=== PATIENT | female | born 1980 | race Hispanic/Latino ===

== ENCOUNTER 2017-01-15 12:09 | Inpatient (IN) | payer OTHER ==
[2017-01-15 14:17] LABS: HEMOGLOBIN 13.4 g/dL (12.0-16.0); MEAN CELL VOLUME 88.1 fl (81.0-99.0); MEAN CORPUSCULAR HEMOGLOBIN 29.5 pg (27.0-31.0); MEAN CORPUSCULAR HGB CONC 33.5 g/dL (33.0-37.0); RBC 4.55 Mil/uL (3.80-5.20); RED CELL DISTRIBUTION WIDTH 13.6 % (11.5-14.5); WHITE BLOOD COUNT 9.6 K/uL (4.8-10.8)
[2017-01-15 14:27] LABS: SQUAMOUS EPITHIAL 14 /hpf (0-5); URINE BACTERIA RARE (<OCC); URINE BILIRUBIN NEGATIVE (NEGATIVE); URINE BLOOD SMALL (NEGATIVE); URINE CLARITY CLOUDY (Clear); URINE COLOR YELLOW (YELLOW); URINE GLUCOSE (UA) NEG (Normal); URINE LEUKOCYTE ESTERASE NEG Leu/uL (Negative); URINE NITRATE NEGATIVE (NEGATIVE); URINE PROTEIN NEGATIVE (NEGATIVE); URINE UROBILINOGEN 0.2-1.0 mg/dL (0.2-1.0)
[2017-01-15 14:34] LABS: ACETAMINOPHEN < 10.0 ug/ml (10.0-30.0); SALICYLATE < 1.0 mg/dL 1
[2017-01-15 14:35] LABS: BLOOD UREA NITROGEN 23 mg/dl (7-17); GFR AFRICAN-AMERICAN > 60; GFR NON-AFRICAN AMERICAN > 60
[2017-01-15 14:36] LABS: ALB/GLOB RATIO 1.4 (1.0-2.1); ALBUMIN 3.8 g/dL (3.5-5.0); AST/SGOT 21 U/L (14-36); CALCIUM 8.8 mg/dL (8.4-10.2)
[2017-01-15 14:37] LABS: ALT/SGPT 18 U/L (9-52)
[2017-01-15 15:13] LABS: BARBITURATES, UR NEGATIVE (NEGATIVE); BENZODIAZEPINES, UR NEGATIVE (NEGATIVE); OPIATES, UR NEGATIVE (NEGATIVE); PHENCYCLIDINE, UR NEGATIVE (NEGATIVE)
--- NOTE | 2017-01-15 17:37 | ED PDOC ---
HPI: Psych/Substance Abuse Time Seen by Provider: 01/15/17 12:45 Chief Complaint (Nursing): Psychiatric Evaluation Chief Complaint (Provider): Depression, SI History Per: Patient History/Exam Limitations: no limitations Onset/Duration Of Symptoms: Days Current Symptoms Are (Timing): Still Present Suicide/Self Injury Attempted (Context): Other Additional Complaint(s): Pt states she has been very depressed because her 16 year old daugher who currently lives in [place] with her father hetes her. PT states her friend was telling her things the daughter said about her which made he increasingly upset. Pt states 3 days ago she took a bunch of random medications but woke up in the morning. PT states she feels like she was going to attempt suicide again so she came to ER. Pt has history of depression and has been on medicaitons in the past but is not currently on any. Past Medical History Reviewed: Historical Data, Nursing Documentation, Vital Signs Vital Signs: Last Vital Signs Temp 98.1 F 01/15/17 12:30 Pulse 97 H 01/15/17 12:30 Resp 18 01/15/17 12:30 BP 154/100 H 01/15/17 12:30 Pulse Ox 100 01/15/17 12:30 - Medical History PMH: Arthritis, Depression - Surgical History Surgical History: No Surg Hx - Family History Family History: States: No Known Family Hx - Living Arrangements Living Arrangements: With Family - Social History Current smoker - smoking cessation education provided: No Alcohol: Occasional Drugs: Denies - Allergies Allergies/Adverse Reactions: Allergies Allergy/AdvReac Type Severity Reaction Status Date / Time No Known Allergies Allergy Verified 01/15/17 12:30 Review of Systems ROS Statement: Except As Marked, All Systems Reviewed And Found Negative Neurological: Negative for: Weakness, Numbness Psych: Positive for: Depression, Suicidal ideation Physical Exam - Reviewed Nursing Documentation Reviewed: Yes Vital Signs Reviewed: Yes - Physical Exam Appears: Positive for: Well, Non-toxic, No Acute Distress Head Exam: Positive for: ATRAUMATIC, NORMAL INSPECTION, NORMOCEPHALIC Skin: Positive for: Normal Color, Warm, DRY Eye Exam: Positive for: Normal appearance ENT: Positive for: Normal ENT Inspection Neck: Positive for: Normal, Painless ROM Cardiovascular/Chest: Positive for: Regular Rate, Rhythm Respiratory: Positive for: CNT, Normal Breath Sounds Gastrointestinal/Abdominal: Positive for: Normal Exam, Bowel Sounds, Soft Back: Positive for: Normal Inspection Extremity: Positive for: Normal ROM Neurologic/Psych: Positive for: Alert, Oriented - Laboratory Results Result Diagrams: 01/15/17 13:35 01/15/17 13:35 - ECG O2 Sat by Pulse Oximetry: 100 Disposition - Clinical Impression Clinical Impression: Depression - Patient ED Disposition Is Patient to be Admitted: No - Disposition Disposition Time: 17:38 Condition: STABLE - Pt Status Changed To: Hospital Disposition Of: Inpatient - Admit Certification Admit to Inpatient:: After my assessment, the patient will require hospitalization for at least two midnights. This is because of the severity of symptoms shown, intensity of services needed, and/or the medical risk in this patient being treated as an outpatient. - POA Present On Arrival: None
[2017-01-15 18:44] VITALS: O2SAT 97
[2017-01-15] MEDS ORDERED: Magnesium Hydroxide Susp 30 ml UD PO PRN (21:13)
[2017-01-15] MEDS ORDERED: Alum-Mag Hydrox-Simethicone Susp (30 mL) PO PRN (21:13)
[2017-01-15] MEDS ORDERED: DiphenhydrAMINE 50 mg/ml Inj IM PRN (21:13)
--- NOTE | 2017-01-16 01:23 | PCM.BM ---
<Aris Valdez J - Last Filed: 01/16/17 01:21> Treatment Plan Problems - Problems identified on initial assessmt hopelessness/helplessness Date Initiated: 01/15/17 Time Initiated: 20:30 Assessment reference: NA Status: Active altered sleep pattern Date Initiated: 01/15/17 Time Initiated: 20:30 Assessment reference: NA Status: Active Treatment assets and liabiliti Patient Assests: adapts well, cooperative, educated, insightful, motivated, ADL independent, negotiates basic needs, financial stabiity Patient Liabilities: live alone, poor support system, medical problems - Milieu Protocol Maintain good personal hygiene: daily Remind patient to perform daily oral care , daily Assist patient to perform ADL's, every other day Encourage regular showers Maintain personal safety: every shift Educate patient to report safety concerns to staff, every shift Monitor environment for contraband/sharps Medication safety: Monitor for expected outcome, potential side effects: every shift, Assess barriers to learning: every shift, Assess readiness for medication education: every shift Family Contact Family involvement: Famliy/SO not involved Discharge/Continuing Care - Education Needs Education Needs: Patient Medication, Patient Diagnosis/Disease Process, Patient Coping Skills, Patient Community resources, Patient Activities of Daily Living, Patient Pain - Discharge Discharge Criteria: Tolerates medication w/o severe side effects, Free of Suicidal thoughts, Normal sleep pattern <Elías Atwood J - Last Filed: 01/17/17 12:26> Family Contact Family contact: Patient agrees to contact, Family has been contacted by patient , Telephone contact initiated by staff Family contact name: Patti Noel ([phone]) Family contacted how many times per week?: 2 Family contact comment: Patti Noel is pt's long-term best friend. Patti knew that pt had been increasingly depressed as of recently, but was not aware that she had become so severely depressed that she was thinking of attempting to take her own life. Patti is aware of pt's current life stressors and will provide support to pt as much as she can. Patti lives about an hour from pt, but will always be available by phone. Patti is concerned for pt, but feels that she is safe to return home and knows that pt is ready to engage in treatment and get better. - Goals for Treatment Patient goals for treatment: Pt reported that she would like to be connected with an outpatient psychiatrist for medication management as she feels she requires an anti-depressant at this time. Pt is skeptical about therapy as she has had bad experiences with it in the past, but is optimistic about trying it again. Pt voiced wanting to repair her relationship with her daughter, but is worried that her daughter may not want to repair it. Patient's family/SO goals for treatment: Patti wants pt to be connected to outpatient services as she feels pt is in need of professional support in the community. Discharge/Continuing Care - Education Needs Education Needs: Patient Medication, Patient Diagnosis/Disease Process, Patient Coping Skills, Patient Community resources, Patient Activities of Daily Living, Patient Pain - Discharge Discharge to:: Home - Treatment Team Participation Discussed with Family/SO: Yes (Tx and D/C discussed with Patti Noel.) Was Patient/Family/SO present at Treatment Team Meeting: Yes (Pt was present at team. )
[2017-01-16 08:18] LABS: T4 6.87 ug/dl (5.5-11.0)
--- NOTE | 2017-01-16 13:51 | PCM.PSYCH ---
Initial Psychiatric Evaluation - Initial Psychiatric Evaluation Type of Admission: Voluntary Legal Status: Capacity Chief Complaint (in patient's own words): i am looking for help Patient's Reaction to Hospitalization: irritable, upset with questions History of Present Illness and Precipitating Events: 36 yo female from [place]. 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 pt's daughter and ex in [place] and daughter has severed all ties with pt for last year. pt is not happy at work and hints at getting multiple complaints from bosses about her "abrasiveness/directness." pt tried to overdose with medications and alcohol and . she has been depressed, irritable, poor sleep, poor concentration , low energy. easily frustrated, missing work, conflicts at work. she reports doing well with [employer] in past. she hints and some irs problem in addition to her work and family problems. acute precipitant was a friend reached out to pt with news about daughter. Current Medications: Active Medications Generic Name Dose Route Start Last Admin Trade Name Freq PRN Reason Stop Dose Admin Acetaminophen 650 mg 01/15/17 21:13 Tylenol 325mg Tab PO Q4 PRN pain level 1 to 7 Al Hydrox/Mg Hydrox/Simethicone 30 ml 01/15/17 21:13 Maalox Plus 30 Ml PO Q4 PRN Dyspepsia Diphenhydramine HCl 50 mg 01/15/17 21:13 Benadryl IM Q6 PRN Extrapyramidal S/S Unable PO Diphenhydramine HCl 50 mg 01/15/17 21:13 Benadryl PO Q6 PRN Extrapyramidal Symptoms Fluoxetine HCl 10 mg 01/16/17 12:00 01/16/17 13:12 Prozac PO 10 mg DAILY LISA Administration Haloperidol 5 mg 01/15/17 21:13 Haldol PO Q4 PRN Agitation Haloperidol Lactate 5 mg 01/15/17 21:13 Haldol IM Q4 PRN Agitation, Unable to Take PO Lorazepam 2 mg 01/15/17 21:13 Ativan IM Q4 PRN Anxiety/Agitation,Unable PO Lorazepam 2 mg 01/15/17 21:13 01/15/17 21:45 Ativan PO 2 mg Q4 PRN Administration Anxiety/Agitation Magnesium Hydroxide 30 ml 01/15/17 21:13 Milk Of Magnesia PO HS PRN Constipation Mirtazapine 15 mg 01/16/17 11:50 Remeron PO HS PRN Insomnia Past Psychiatric History - Past Psychiatric History Previous Treatment History: None Prior Professional Help: prior couples/individual and family therapy Prior Psychiatric Treatment: did well with pristiq, did not like wellbutrin History of Abuse: denies History of ETOH/Drug Use: drinks alcohol socially. smokes cigarettes- currently e cigarettes. denies other substance use History of Family Illness: denies Pertinent Medical Hx (Current Medical&Sleep Prob, Allergies): Allergies Allergy/AdvReac Type Severity Reaction Status Date / Time No Known Allergies Allergy Verified 01/15/17 12:30 Diclofenac Sodium [Diclofenac Sodium ER] 100 mg PO Q12H 01/15/17 Secukinumab [Cosentyx Syringe] 150 mg SQ Q28D 01/15/17 denies any acute medical issues Review of Systems - Psychiatric Psychiatric: As Per [facility] Mental Status Examination - Personal Presentation Personal Presentation: Looks stated age - Affect Affect: Depressed - Motor Activity Motor Activity: Calm - Reliability in Providing Information Reliability in Providing Information: Poor, due to altered mood - Speech Speech: Organized - Mood Mood: Depressed, Other (irritable) - Formal Thought Process Formal Thought Process: No Impairment - Obsessions/Compulsions Obsessions: No Compulsions: No - Cognitive Functions Orientation: Person, Place, Situation, Time Sensorium: Alert Attention/Concentration: Attentive Abstract Thinking: [place] Estimate of Intelligence: Above Average Judgement: Intact, as evidence by: Insight regarding need for hospitalization Memory: Recent intact, as evidence by: Ability to recall events of the day, Remote intact, as evidenced by: Abilit to recall sig. life events - Risk Risk: Suicidal (recent attempt. 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 pt agrees. hospitalist consult disposition planning Projected ELOS: 2-4 days Prognosis: fair
[2017-01-16] MEDS ORDERED: Apap-Butalbital-Caffeine 325-50-40mg Tab PO PRN (15:40)
--- NOTE | 2017-01-16 16:14 | CP.PCM.CON ---
History of Present Illness - History of Present Illness History of Present Illness: Pt is a 36 yo F with PMH ankylosing spondylitis and migraines who is admitted to the inpatient psychiatric unit due to depression. She states that she was diagnosed by a fire fighters dispatcher in [place] (where she used to live with ex and daughter), and now sees Dr. 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 She is upset because she has not gotten diclofenac, and because being sedentary exacerbates her condition and she is very sedentary in the unit. PMH: ankylosing spondylitis dx 2 years ago Allergies: NKDA Medications: Diclofenac 100 mg twice a day, cosentyx, imitrex Past surgical hx: ex-lap in 2012 for posterior uterine wall bleed, 2 hernia repairs in 2014, 1 Past hospitalizations: for above surgical procedures Family Hx: mother:htn, father: [place] Social Hx: Former smoker (10-15 cig/day for 22 years, now smokes e-cig), admits to binge drinking occasionally, states that her daughter thinks she drinks too much, denies needing a drink to wake up in the mornings. Occasional marijuana use, denies other illicit drug use. 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 OBGYN: LMP December2016, regular cycle. , 2 miscarriages, 1 elective termination Review of Systems: General: Negative for fatigue, chills, night sweats. Skin: No lesions, no rashes, no changes in color. HEENT: No changes in vision, no sore throat, no changes in hearing. Cardiovascular: No palpitations, no chest pain. Respiratory: No shortness of breath, no cough. GI: No abdominal pain, no nausea, no vomiting, no diarrhea, no constipation, no blood in the stool. : No changes in urination, no change in frequency or amount. Endocrine: No heat/cold intolerance. MSK: Chronic back pain. No generalized weakness. Neuro: No dizziness. Review of Systems - Review of Systems Review of Systems: please see HPI Past Patient History - Past Social History Smoking Status: Former Smoker Alcohol: Occasional Drugs: Cannabis - CARDIAC Hx Cardiac Disorders: No - PULMONARY Hx Respiratory Disorders: No Hx Tuberculosis: No - NEUROLOGICAL HX Cerebrovascular Accident: No Hx Migraine: Yes Hx Seizures: No - HEENT Hx HEENT Problems: No - RENAL Hx Chronic Kidney Disease: No - ENDOCRINE/METABOLIC Hx Endocrine Disorders: No - HEMATOLOGICAL/ONCOLOGICAL Hx Blood Transfusions: Yes (s/p hernia operations/internal abd bleed) Hx Cancer: No Hx Human Immunodeficiency Virus (HIV): No - MUSCULOSKELETAL/RHEUMATOLOGICAL Hx Arthritis: Yes Other/Comment: alkalizing spondylosis - GASTROINTESTINAL Hx Bowel Surgery: Yes (2013spont. internal bleed) Other/Comment: hernia and repair surguries 2013, 2014 - GENITOURINARY/GYNECOLOGICAL Hx Sexually Transmitted Disorders: No - PSYCHIATRIC Hx Depression: Yes - SURGICAL HISTORY Hx Herniorrhaphy: Yes Other/Comment: s/a - ANESTHESIA Hx Anesthesia: Yes Meds Allergies/Adverse Reactions: Allergies Allergy/AdvReac Type Severity Reaction Status Date / Time No Known Allergies Allergy Verified 01/15/17 12:30 - Medications Medications: Current Medications Acetaminophen (Tylenol 325mg Tab) 650 mg PO Q4 PRN PRN Reason: pain level 1 to 7 Al Hydrox/Mg Hydrox/Simethicone (Maalox Plus 30 Ml) 30 ml PO Q4 PRN PRN Reason: Dyspepsia Diphenhydramine HCl (Benadryl) 50 mg IM Q6 PRN PRN Reason: Extrapyramidal S/S Unable PO Diphenhydramine HCl (Benadryl) 50 mg PO Q6 PRN PRN Reason: Extrapyramidal Symptoms Fluoxetine HCl (Prozac) 10 mg PO DAILY LISA Last Admin: 01/16/17 13:12 Dose: 10 mg Haloperidol (Haldol) 5 mg PO Q4 PRN PRN Reason: Agitation Haloperidol Lactate (Haldol) 5 mg IM Q4 PRN PRN Reason: Agitation, Unable to Take PO Lorazepam (Ativan) 2 mg IM Q4 PRN PRN Reason: Anxiety/Agitation,Unable PO Lorazepam (Ativan) 2 mg PO Q4 PRN PRN Reason: Anxiety/Agitation Last Admin: 01/15/17 21:45 Dose: 2 mg Magnesium Hydroxide (Milk Of Magnesia) 30 ml PO HS PRN PRN Reason: Constipation Mirtazapine (Remeron) 15 mg PO HS PRN PRN Reason: Insomnia Physical Exam - Constitutional Appears: Well, Non-toxic - Head Exam Head Exam: NORMAL INSPECTION - Eye Exam Eye Exam: EOMI, Normal appearance, PERRL - ENT Exam ENT Exam: Mucous Membranes Moist - Neck Exam Neck exam: Positive for: Full Rom, Normal Inspection - Respiratory Exam Respiratory Exam: Clear to Auscultation Bilateral, NORMAL BREATHING PATTERN - Cardiovascular Exam Cardiovascular Exam: REGULAR RHYTHM, +S1, +S2 - GI/Abdominal Exam GI & Abdominal Exam: Normal Bowel Sounds, Soft - Extremities Exam Extremities exam: Positive for: full ROM, normal inspection. Negative for: calf tenderness - Back Exam Back exam: NORMAL INSPECTION - Neurological Exam Neurological exam: Alert, CN II-XII Intact, Normal Gait, Oriented x3 - Skin Skin Exam: Dry, Intact, Normal Color, Warm Results - Vital Signs Recent Vital Signs: Last Vital Signs Temp 97.5 F L 01/16/17 09:15 Pulse 83 01/16/17 09:15 Resp 18 01/16/17 09:15 BP 135/90 01/16/17 09:15 Pulse Ox 97 01/15/17 18:43 - Labs Result Diagrams: 01/15/17 13:35 01/15/17 13:35 Labs: Laboratory Results - last 24 hr 01/16/17 01/16/17 07:00 07:00 Hemoglobin A1c 4.9 Triglycerides 248 H Cholesterol 148 LDL Cholesterol Direct 70 HDL Cholesterol 43 Thyroxine (T4) 6.87 TSH 3rd Generation 2.25 Assessment & Plan - Assessment and Plan (Free Text) Assessment: This is a 36 yo F with PMH ankylosing spondylitis and migraines who is in the inpatient psychiatric unit due to depression. Plan: 1. Depression -management by inpt psychiatric team 2. Diagnosis of migraine headaches -start fioricet 1tab Q4 PRN 3. Chronic back pain due to ankylosing spondylitis -pt takes diclofenac but it is non-formulary -naprosyn 250 mg Q8 PRN
[2017-01-17 09:06] VITALS: BP 130/93; PULSE 86; RESP 18; TEMP 96.6
--- NOTE | 2017-01-17 13:46 | PCM.PYCHDC ---
Mental Status Examination - Mental Status Examination Orientation: Person, Place, Situation, Time Memory: Intact Mood: Depressed (irritable) Affect: Constricted Speech: Appropriate Attention: WNL Concentration: WNL Association: WNL Fund of Knowledge: WNL Formal Thought Process: No Impairment Description of patient's judgement and insight: fair i/j Psychotic Thoughts and Behaviors: denies a/v hallucinations Suicidal Ideation: No Current Homicidal Ideation?: No Plan: pt denies si/hi. she reports she would call a friend or suicide hotline if any suicidal thoughts and states she does not want "what happened to happen again" Discharge Summary - Discharge Note Reason for Hospitalization: pt came to ER after a failed suicide attempt, seeking referral for medications and therapy Psychiatric History (includes Medical, Family, Personal Hx): history of family/ couples/individual therpay in past. Laboratory Data: Abnormal Lab Results 01/16/17 07:00 RPR Nonreactive Consultations:: List each consultation separately and include: 1. Reason for request. 2. Findings. 3. Follow-up Consultations: seen by hospitalist who managed medical issues on the unit. Summary of Hospital Course include:: 1. Description of specific treatment plan utilized for patients during their course of treatmen. 2. Summarize the time- course for resolution of acute symptoms and/or regressed behaviors. 3. Describe issues identified and worked on during hospitalization. 4. Describe medication utilized. 5. Describe medical problems identified and treated. 6. Reassessment of suicide risk Summary of Hospital Course: 36 yo female from [place]. 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 pt's daughter and ex in [place] and daughter has severed all ties with pt for last year. pt is not happy at work and hints at getting multiple complaints from bosses about her "abrasiveness/directness." pt tried to overdose with medications and alcohol and . she has been depressed, irritable, poor sleep, poor concentration , low energy. easily frustrated, missing work, conflicts at work. she reports doing well with pristiq in past. she hints and some irs problem in addition to her work and family problems. acute precipitant was a friend reached out to pt with news about daughter. hospital course: admitted to the unit, placed on routine safety protocols. oriented to the unit. seen by the treatment team. started on prozac and remeron as a prn sleep aid. she did not want to continue inpt treatment as she did not find it was helpful. she was irritable at time and seemed to minimize the seriousness of her suicidal behavior. she did have future oriented thoughts and was denying any suicidal or homicidal thoughts. she was reporting no side effects with the prozac and seemed to find the remeron helpful for sleep. she was willing to f/u with outpatient providers. - Final Diagnosis (DSM 5) Condition upon Discharge: STABLE DSM 5: major depression, recurrent moderate Disposition: HOME/ ROUTINE Follow-up Treatment Plan: follow up with aftercare as directed take medications as prescribed do not use alcohol, tobacco or other illicit substances call 911 if any suicidal or homicidal thoughts Prescriptions/Medication Reconciliation: FLUoxetine [Prozac] 10 mg PO DAILY #15 cap Mirtazapine [Remeron] 15 mg PO HS PRN #15 tab PRN Reason: Insomnia - Smoking Cessation Smoking Cessation Medication prescribed: No Reason for not providing: "it makes my arm numb" - Antipsychotic Medications Pt discharged on 2 or more routine antipsychotic medications: No
== END 2017-01-17 15:15 | disposition home or self-care (01) | DRG 885 ==
LOC: H.ER 12:09 → H.ERHOLD 17:20 → H.PSYCH 19:49
PROVIDERS: ADMIT Psychiatry & Neurology Psychiatry; ATTEND Psychiatry & Neurology Psychiatry
PROC: GZ3ZZZZ Medication Management (ICD-10-PCS; principal; 2017-01-15)
PROC: GZHZZZZ Group Psychotherapy (ICD-10-PCS; 2017-01-15)
PROC: GZ56ZZZ Individual Psychotherapy, Supportive (ICD-10-PCS; 2017-01-15)
DX: F33.2 Major depressive disorder, recurrent severe without psychotic features (principal); F12.90 Cannabis use, unspecified, uncomplicated; M45.9 Ankylosing spondylitis of unspecified sites in spine; Z63.9 Problem related to primary support group, unspecified; Z82.49 Family history of ischemic heart disease and other diseases of the circulatory system; Z87.891 Personal history of nicotine dependence